=== PATIENT | male | born 1945 | race Caucasian/White ===

== ENCOUNTER 2017-03-18 11:37 | Emergency (ER) | payer MEDICARE, OTHER ==
[~2017-03-18] VITALS: Ht 190.5 cm; Wt 131.8 kg
[~2017-03-18 11:37] MED LIST: AMLO5TAB2 PO; METO25TA99 PO; PRV40T PO; WARF7.5T4 PO; [UNRECOGNIZED DRUG - CODE] PO
[2017-03-18 11:41] VITALS: BP 141/90; PULSE 75; RESP 17; O2SAT 97
--- NOTE | 2017-03-18 12:03 | ED.REPORT ---
HPI-Rash / Abscess Date of Service Mar 18, 2017 ED Provider: Bernice Blevins MD Patient is a 72-year-old gentleman with history of atrial fibrillation currently on Coumadin with an INR 3.3 today, presents with concern for bleeding into his right groin. He says for the last couple of weeks he has had a growing discoloration in his right groin onto his thigh, that has since waiting in the previous days, however he was concerned that he was continuing to have internal bleeding. Today he presents with a lesion roughly palm-sized on the inner portion of his right groin, he says it has been itching. He does not remember any trauma to the area, has not had this before, does not describe any activities out of the ordinary. Denies any lightheadedness, dizziness, chest pain, shortness of breath, nausea vomiting or diarrhea, no other lesions elsewhere. Nursing Notes Stated Complaint: POSSIBLE INTERNAL BLEEDING Chief Complaint: General Complaint Nursing Notes Reviewed: Yes Allergies: Coded Allergies: Sulfa (Sulfonamide Antibiotics) (Verified Allergy, Mild, 03/18/17) atorvastatin (Verified Allergy, Mild, Rash, 03/18/17) atorvastatin calcium (Verified Allergy, Mild, 03/18/17) Uncoded Allergies: SOTOLOL (Allergy, Severe, 09/15/13) Scheduled Amlodipine (Amlodipine) 5 Mg Tablet 5 MG PO DAILY Clotrimazole 1% (Clotrimazole 1%) 30 Ml Solution 30 ML TOPICAL BID Dofetilide (Tikosyn) 125 Mcg Capsule 125 MCG PO BID Metoprolol Succinate ER (Metoprolol Succinate ER) 25 Mg Tab.er.24h 25 MG PO DAILY Pravastatin (Pravachol) 40 Mg Tab 80 MG PO HS Warfarin Sodium (Warfarin Sodium) 7.5 Mg Tablet 7.5 MG PO DAILY General Time Seen by MD: 11:47 Chief Complaint Rash Similar Sx Previous: No Past Medical History Past Medical History Hypertension Hyperlipidemia Atrial fibrillation on Coumadin Past Surgical History PCI 2014 Review of Systems Complete sys rev & neg: except as marked. Physical Exam General: Standing in room, no apparent distress. HEENT: Normocephalic, atraumatic Cardiovascular: Irregularly irregular, no clicks murmurs rubs, peripheral pulses 2/4 equal bilaterally Pulmonary: Clear to auscultation bilaterally, no W/R/R. Abdominal: Soft to palpation. Extremities: No edema appreciated. No tenderness, asymmetry. Right inguinal region is a palm sized annular lesion with an active border, there is no purulence, no ecchymosis, no bleeding or excoriation. There is no foul odor, area is dry. MSK: Gait is normal, able to move extremities on their own volition. Initial Vital Signs Vital Signs (First) Date Time Temp Pulse Resp B/P Pulse Ox O2 Delivery O2 Flow Rate FiO2 03/18/17 11:41 36.5 75 17 141/90 97 Room Air Initial VS: Reviewed Re-Eval/Medical Decision Med Decision/Clinical Course History of lesion, as well as morphology on physical exam is consistent with fungal infection, tinea cruris. His custody interpretation of the exam, as well as treatment with the patient. Patient stated understanding and agreement. In regards to his atrial fibrillation, he is irregularly irregular, reportedly his INR is supratherapeutic at 3.3, but we do not see any active bleeding, no active ecchymosis, no hematomas. Red flag symptoms and return precautions were discussed with patient regarding his atrial fibrillation, he stated understanding and agreement. Prescription for topical antifungal was sent to his pharmacy with follow-up instructions to his PCP. Discharge & Departure Impression: Primary Impression: Tinea cruris Disposition: Home Discharge Condition All VS Reviewed: Yes Condition: Stable Patient Instructions: Jock Itch (ED) Additional Instructions: Thank you for entrusting us with your care. On exam the lesion your concern about is consistent with a fungal infection, "jock itch." This does not appear to be due to internal bleeding. Treatment for this is topical antifungal cream. This will be sent to your pharmacy. Please apply twice a day to the affected area after getting out of the shower and the area is completely dried off. If you notice any other discolorations appearing anywhere else on your body, please follow-up with your primary care doctor. In regards to your atrial fibrillation, rate appears to be under control. If you experience any lightheadedness, dizziness, chest pain, or abrupt shortness of breath, please call 911. Referrals: Sam Benítez MD (PCP) Attending Statement Patient seen and examined with Dr. Rucker. Agree with diagnosis of tinea cruris. No evidence of bleeding at this time. copies to: Sam Benítez MD; Enmanuel Martinez MD, Noah M DO Mar 18, 2017 12:03 Bernice Blevins MD Mar 18, 2017 15:40
[2017-03-18] MEDS ORDERED: ECON15CR10 TOP (12:14)
[2017-03-18] MEDS ORDERED: CLOT30SO TOPICAL (12:18)
== END 2017-03-18 12:50 | disposition home or self-care (01) ==
LOC: SED 11:37
DX: B35.6 Tinea cruris (principal); I10 Essential (primary) hypertension; E78.5 Hyperlipidemia, unspecified; Z79.01 Long term (current) use of anticoagulants; Z88.2 Allergy status to sulfonamides; Z88.8 Allergy status to other drugs, medicaments and biological substances

== ENCOUNTER 2017-05-29 00:23 | Day surgery (SDC) | payer MEDICARE, OTHER ==
[~2017-05-29] VITALS: Ht 190.5 cm; Wt 131.8 kg
[2017-05-29] VITALS (13 sets, daily range): BP systolic 100–148; BP diastolic 52–78; PULSE 57–67; RESP 12–22; O2SAT 93–97
[~2017-05-29 00:23] MED LIST changes: +CLOT30SO TOPICAL; +MULT-1018 PO
[2017-05-29] MEDS ORDERED: Rocuronium 10 mg/mL 5 mL Inj ONE (00:24)
[2017-05-29] MEDS ORDERED: Ondansetron 2 mg/mL 2 mL Inj ONE (00:24)
[2017-05-29] MEDS ORDERED: Ketamine 10 mg/mL 20 mL Inj ONE (00:24)
[2017-05-29] MEDS ORDERED: MetoCLOpramide 5 mg/mL 2 mL Inj ONE (00:24)
[2017-05-29] MEDS ORDERED: Protamine Sulfate 10 mg/mL 5 mL Inj ONE ×2 (00:24→15:23)
[2017-05-29] MEDS ORDERED: Propofol 10,000 mCg/mL 20 mL Inj ONE (00:24)
[2017-05-29] MEDS ORDERED: Dexamethasone 4 mg/mL Inj ONE (00:24)
[2017-05-29] MEDS ORDERED: Lactated Ringer's 1,000 ML IV SCH ×2 (05:00→13:25)
[2017-05-29] MEDS ORDERED: Benzoc-Butamben-Tetraca Spray 20 Gm Spray TOPICAL ONE (06:00)
[2017-05-29 11:04] LABS: BASOPHILS % (AUTO) 0.4 % (0-3); EOSINOPHILS % (AUTO) 2.8 % (0-5); MONOCYTES % (AUTO) 15.8 % (4-12); Mean Corpuscular Hemoglobin 32.8 pg (27.0-35.0); Mean Corpuscular Volume 95.2 fL (81-100); NEUTROPHILS % (AUTO) 55.6 % (40-74); Platelet Count 229 bil/L (150-400)
[2017-05-29] MEDS ORDERED: OMEG1CAP99 PO (11:10)
[2017-05-29] MEDS ORDERED: WARF10TA4 PO (11:10)
--- NOTE | 2017-05-29 11:12 | NUR ---
Admit [facility] Admitted to [facility] 8 about 1000. VSS. Tele appears SR with 1st degree AVB. IVs started and labs sent. BG 140. PT/INR 39.4/3.3. Denies pain. See EMR for further assessment and info. Procedure and recovery reviewed and verbalizes understanding. Awaiting poultry farm laborer.
[2017-05-29 11:20] LABS: INR 3.01 ratio
[2017-05-29] MEDS ORDERED: Heparin 25,000 Unit/500 mL 0.45% NS Premix IV ONE (12:03)
[2017-05-29] MEDS ORDERED: Heparin 1,000 Unit/mL 10 mL Inj ONE ×2 (12:03→13:18)
[2017-05-29] MEDS ORDERED: Heparin 10,000 Unit/1,000 mL NS Premix IV ONE (12:03)
[2017-05-29] MEDS ORDERED: Heparin 1,000 Units/500 mL NS Premix IV ONE (12:03)
[2017-05-29] MEDS ORDERED: 0.9% Sodium Chloride 5,000 ML ONE (12:04)
--- NOTE | 2017-05-29 12:12 | PCM.HPANE ---
Patient Data Surgeon Admitting Provider: Attending Provider:Enmanuel Martinez MD Primary Care Physician:Sam Benítez MD Other Provider:[facility] Reason for Visit A-FIB Ht/WT & BMI Height (Feet): 6 Height (Inches): 3.00 Weight (Kilograms): 131.800 Body Mass Index 36.13 Allergies Coded Allergies: Sulfa (Sulfonamide Antibiotics) (Verified Allergy, Mild, 05/29/17) atorvastatin (Verified Allergy, Mild, Rash, 05/29/17) atorvastatin calcium (Verified Allergy, Mild, 05/29/17) Uncoded Allergies: SOTOLOL (Allergy, Severe, 09/15/13) Past Anesthesia History Anesthesia History: Denies:: Abnormal Airway, Anesthesia Reactions, Difficult Intubation, Fam Anesthesia Reaction, Fam Malignant Hypertherm, Malignant Hyperthermia Diabetes History Hx Diabetes?: Yes (Type 2) Current Bedside Blood Glucose: 140 MRSA MRSA: No Medications Blood Thinner: Coumadin Reported Medications [place]-3 Fatty Acids/Fish Oil (Fish Oil 1,200 mg Softgel)1 Each Capsule1 Each PO DAILY 05/29/17 Warfarin Sodium 10 Mg Eliest25 Mg PO DAILY 30 Days Ref 0 Except take 1/2 tablet on Sundays05/29/17 Multivitamin (Multi Vitamin Daily)1 Each Tablet1 Each PO DAILY 30 Days Ref 0 05/27/17 Pravastatin (Pravachol)40 Mg Tab80 Mg PO HS 30 Days Ref 0 09/27/14 Metoprolol Succinate ER 25 Mg Tab.er.24h25 Mg PO BID 30 Days Ref 0 09/27/14 Amlodipine 5 Mg Tablet5 Mg PO DAILY 30 Days Ref 0 08/26/14 Dofetilide (Tikosyn)125 Mcg [id number] Mcg PO BID 30 Days 08/26/14 Discontinued Reported Medications Warfarin Sodium 7.5 Mg [id number] Mg PO DAILY 30 Days Ref 0 09/27/14 Discontinued Scripts Clotrimazole 1% 30 Ml [id number] Ml TOPICAL BID #1 TUBE Prov:Earnest Rucker DO 03/18/17 History History of ENT Problems?: Yes HEENT History: Positive for:: Cataracts (bilat surgery) Denies:: Abnormal Airway Difficult Intubation Dysphagia Glaucoma Hearing Problem Sinus Problem Denture Type: Full- Upper Teeth Condition: Within Normal Limits Other HEENT Pertinent History: Upper plate Hx of Heart Problems?: Yes Cardiovascular History: Positive for:: Atrial Fibrillation Cardiac Surgery (BYPASS 2002, ablasion in 2009) Chest Pain Hypertension Irregular Heartbeat (hx of afib) Denies:: AICD Congestive Heart Failure Edema Heart Murmur Pacemaker Peripheral Vascular Thrombophlebitis Valvular Heart Disease Hx of Respiratory Problem?: Yes Respiratory History: Positive for:: Chest Surgery (CABG) Denies:: Asthma COPD Dyspnea Emphysema Hemoptysis Pneumonia Tuberculosis Hx Neurologic Problems?: Yes Neurological History: Positive for:: Headaches Denies:: Alzheimer's Disease CVA Dementia Dizziness Parkinson's Disease Seizures Hx of GI Problems?: No Hx of Problems?: No Genitourinary History: Denies:: HX of Hemodialysis Kidney Stones Urinary Tract Infection HX of Peritoneal Dialysis: No Male Hx: Denies:: Prostate Problems Scrotal Mass Testicular Surgery Hx Musculoskeletal Problems?: No Musculoskeletal History: Positive for:: Back Injury (A couple of slip and falls) Denies:: Joint Replacement Musculoskeletal Trauma Hx of Psycho/Social Problems?: No Psycho Social History: Denies:: Anxiety Bipolar Disorder Hx Depression Suicide Attempt Hx Surgeries?: Yes (by pass hernia carpal tunnel prostate tonsillectomy sinus ) Hx Any Other Health Problems?: Yes Other History: Positive for:: Hospitalization Denies:: Cancer Endocrine Disease Thyroid Disease History Blood Transfusions: Positive for:: Accept Blood Products? Denies:: Blood Transfuse Reaction Blood Transfusions Hx Diabetes: Yes (Type 2)Bedside Blood Glucose: 140 Hx Alcohol Use: YesAlcoholic Drinks Per Day: Occ. beerHx Substance Use: No Smoking Status: Never Smoker Have You Smoked inLast 12 mo: No Stop/Bang Treated for Sleep Apnea?: No Do You Have a CPAP Machine?: No EDEN Risk Assessment: Low Risk, <3 Yes Risk Assessment Category Category 1A: Patient has history of documented sleep apnea, and HAS NOT received any narcotic, sedative or anesthesia administration during this stay. Category 1B: Patient has history of documented sleep apnea, and HAS received any narcotic , sedative or anesthesia administration during this stay Category 2: Patient has SUSPECTED Obstructive Sleep Apnea, and HAS received any narcotic , sedative or anesthesia administration during this stay. Category 3: Patient has SUSPECTED Obstructive Sleep Apnea and HAS NOT received narcotic, sedative or anesthesia administration during this stay. Category 4: Outpatient in Procedural Areas with known sleep apnea or who screen positive for High Risk via the STOP/BANG questionnaire. Exam Exam Vital Signs Vital Signs Date Time Temp Pulse Resp B/P Pulse Ox O2 Delivery O2 Flow Rate FiO2 05/29/17 10:50 67 15 148/74 05/29/17 10:50 36.6 67 15 148/74 97 Room Air General Appearance: Oriented X3 HEENT/AIRWAY: MP 2 Lungs: Normal Air Movement Heart: Other Meds/Labs/Diagnostics Bedside Blood Glucose: 140 Labs Test 05/29/17 10:30 White Blood Count 5.7th/mm3 (3.8-10.1) Red Blood Count 4.42mil/mm3 (4.40-5.80) Hemoglobin 14.5g/dL (13.8-17.2) Hematocrit 42.1% (41.0-50.0) Mean Corpuscular Volume 95.2fL (81-100) Mean Corpuscular Hemoglobin 32.8pg (27.0-35.0) Mean Corpuscular Hemoglobin Concent 34.4% (32.0-37.0) Red Cell Distribution Width 13.1% (12.3-15.4) Platelet Count 229bil/L (150-400) Neutrophils (%) (Auto) 55.6% (40-74) Lymphocytes (%) (Auto) 25.2% (14-46) Monocytes (%) (Auto) 15.8% (4-12) Eosinophils (%) (Auto) 2.8% (0-5) Basophils (%) (Auto) 0.4% (0-3) Prothrombin Time 32.9sec (8.1-12.5) Prothromb Time International Ratio 3.01ratio Sodium Level 136mEq/L (134-144) Potassium Level 4.1mEq/L (3.5-5.2) Chloride Level 100mEq/L (97-108) Carbon Dioxide Level 21mmol/L (18-29) Blood Urea Nitrogen 19mg/dL (8-27) Creatinine 0.98mg/dL (0.76-1.27) Estimat Glomerular Filtration Rate 80mL/min (>59) Glucose Level 139mg/dL (60-99) Calcium Level 9.0mg/dL (8.5-10.1) Plan Impression Patient chart reviewed, patient interviewed and anesthestic plan with risks, benefits, and alternatives discussed, and informed consent obtained. ASA Physical Status: ASA3 Severe Disease Anesthetic Support Modalities: Arterial Line Anesthetic Plan: GA Bene/Risks/Altern/Consents: Yes HP Complete Prior to Induction: Yes Cullen Cary MD May 29, 2017 12:12
[2017-05-29] MEDS ORDERED: EPHEDrine Sulfate 50 mg/mL Inj IVPUSH PRN (13:25)
[2017-05-29] MEDS ORDERED: MetoCLOpramide 5 mg/mL 2 mL Inj IVPUSH PRN (13:25)
[2017-05-29] MEDS ORDERED: Lactated Ringer's 500 ML IV PRN (13:25)
[2017-05-29] MEDS ORDERED: fentaNYL-PF 50 mCg/mL 2 mL Inj IVPUSH PRN (13:25)
[2017-05-29] MEDS ORDERED: HYDROmorphone 1 mg/mL Inj IVPUSH PRN (13:25)
[2017-05-29] MEDS ORDERED: Dexamethasone 4 mg/mL Inj IVPUSH PRN (13:25)
[2017-05-29] MEDS ORDERED: Phenylephrine 10,000 mCg/mL Inj IVPUSH PRN (13:25)
[2017-05-29] MEDS ORDERED: Ondansetron 2 mg/mL 2 mL Inj IVPUSH PRN (13:25)
[2017-05-29] MEDS ORDERED: HYDROcodone-APAP 5-325 mg Tablet PO PRN (15:50)
[2017-05-29] MEDS: 0.9% Sodium Chloride 1,000 ML IV SCH ×2 (17:06→19:03)
--- NOTE | 2017-05-29 17:25 | NUR ---
Procedure/Recovery/Pain Pt. went to skilled laborer about 1230. Returned at 1615. Unarousable at first but VSS and breathing independently with oral airway in. Pt. able to open eyes within 10minutes and airway out within 15minutes. C/O severe back pain 8/10 per FELDT. Fentanyl 50mcg and Morphine 4mg IVP given without relief. Dilaudid 1mg IVP given and states pain down to 3/10 at this time. Dozing intermittently. O2 weaned as able from Simple mask to 4L NC. Tele SB with 1st degree AVB. Taking ice chips without nausea. Continue to monitor per orders.
--- NOTE | 2017-05-29 17:47 | PROCED ---
[address] [address] PROCEDURE NOTE PATIENT: LIBRADO BYERS : 1945 MR#: [id number] ADMIT: 05/29/2017 JOB ID: [id number] DATE OF SERVICE: 05/29/2017 PREOPERATIVE DIAGNOSIS(ES): Paroxysmal drug refractory symptomatic atrial fibrillation. POSTOPERATIVE DIAGNOSIS(ES): Paroxysmal drug refractory symptomatic atrial fibrillation. PROCEDURES PERFORMED: 1. Comprehensive electrophysiology study. 2. Three-dimensional electroanatomic mapping using the CARTO 3 system. 3. Intracardiac echocardiography. 4. Transseptal puncture x2. 5. Atrial fibrillation ablation with pulmonary vein isolation. 6. Barium esophagram. 7. Fluoroscopy. SURGEON: Health Information Systems Technician: Enmanuel Martinez MD, electrophysiology attending. HYDRAMATIC SPECIALIST: Diana Hauser. ANESTHESIA: General endotracheal anesthesia was undertaken for this case. INDICATION: The patient is a pleasant 72-year-old man with preserved LV function, coronary artery disease bypass grafting, and previous atrial fibrillation ablation. After discussion of the risks and benefits of catheter based mapping ablation, he opted to proceed. PROCEDURAL DESCRIPTION: Following informed consent, the patient was taken to the EP laboratory in the fasting nonsedated state where he was prepped and draped in the usual sterile fashion. He underwent a preprocedural transesophageal echocardiogram by Dr. Torres. Please see separate dictated report for the details of that procedure. This confirmed lack of intracardiac thrombus. The bilateral groins were then infiltrated with 1% lidocaine; then, using modified Seldinger technique, two 8-Northern Irish sheaths were inserted into the right femoral vein and a 7- and 10.5-Northern Irish were inserted into the left femoral vein. Under fluoroscopic guidance a deflectable decapolar catheter was advanced into the coronary sinus with the most proximal bipoles at the os of the sinus. An intracardiac echocardiography probe was advanced to the RV outflow tract and used to visualize the pericardial space. No effusion was noted. The ICE probe was pulled back into the right atrium and used to visualize the interatrial septum in assistance of transseptal puncture. Two transseptal punctures were performed in an identical fashion. Each of the short 8-Northern Irish sheaths in the right groin was exchanged over a long wire for a [employer] sheath dilator and [place]-Vienna needle. The entire system was used to engage the interatrial septum; then, under fluoroscopic, ICE, and pressure guidance, the septum was traversed twice to deploy the two Lynch sheaths into the left atrium. The patient was heparinized for a goal ACT of 350-400 seconds for the entire time we were in the left atrium following the first and preceding the second transseptal puncture. A re-survey of the pericardial space showed no evidence of effusion. Through the two Lynch sheaths an F-curve SmartTouch irrigated ablation catheter was passed, as was a single 20-pole PentaRay catheter. A three-dimensional electroanatomic map of the left atrium and four pulmonary veins was created using the [employer] 3 system. Three of the four pulmonary veins had reconnected electrically, the left upper, right upper, and right lower pulmonary veins. These were targeted with circumferential ablation lesions at their , achieving entrance and exit block. The left lower pulmonary vein was already isolated for entrance and exit block. I then disengaged from the left atrium, turned off the heparin, resurveyed the pericardial space which showed no evidence of effusion, and reversed patient's heparin with protamine. During the course of this study we did complete a comprehensive electrophysiology study with right atrial pacing recording, right ventricular pacing recording, His bundle recording, and left atrial pacing recording. All catheters and sheaths were removed. Manual pressure was performed for hemostasis. The patient was transferred to the [facility] for monitoring and bed rest. COMPLICATIONS: None. ESTIMATED BLOOD LOSS: 10 to 20 mL. FINDINGS: 1. Baseline rhythm is sinus with an RR interval of 1136 msec, KS 230 msec, QRS 95 msec, QT 547 msec. 2. Retrograde conduction. Atrial activation was concentric. VA Wenckebach seen at 500 msec. 3. Pulmonary vein isolation as described above with entrance and exit block of all four pulmonary veins. IMPRESSION: Successful pulmonary vein isolation procedure for drug-refractory symptomatic paroxysmal atrial fibrillation. PLAN: 1. Bed rest x4 hours. 2. Continue warfarin, dofetilide, and beta blockade. 3. Protonix 40 mg p.o. daily x1 month. 4. Follow up with Armin Love PA-C in clinic in four weeks and with az in three months. 5. Monitoring overnight. ATTENDING STATEMENT: Enmanuel Martinez MD, electrophysiology attending, was present for and supervised/performed all aspects of this procedure.
--- NOTE | 2017-05-29 18:44 | NUR ---
Transfer No change in assessment. VSS. Tele SB with 1st degree AVB. States back pain 02/01 but requesting po meds. Discussed options and pt. chose vicodin. 2 po given as pt. large and resistant to meds per anesthesia. Taking po well. Report to Tressa Davidson RN. Transported to 2029 via bed with all belongings and in no distress at 1820. Bedside check done.
--- NOTE | 2017-05-29 19:49 | NUR ---
Arrival to unit/Groin sites Patient alert and oriented x3, reports full sensation, all distal pulses palpable. VS within normal limits, SPO2 weaned to 2L (patient typically on RA, drowsy from medications post ablation). Bedrest until 2014 -- patient aware. Bilateral groin sites views with ANABEL MAIKEL Herrera, small sanguinous drainage noted with possible small hematoma on R (approx the size of dime). Both groin sites viewed with NOC MAIKEL Palma. Denies pain at bilateral groin sites.
--- NOTE | 2017-05-29 21:24 | PCM.CONPHA ---
Assessment/Plan Assessment/Plan ANTICOAGULATION MANAGEMENT BY PHARMACY -INDICATION: AFIB -HOME DOSE: 10 MG DAILY EXCEPT SUNDAYS TAKE 5 MG -CONCURRENT ANTICOAGULATION: NONE -COAG TRENDS: Date -May INR 3.01 PLAN: PATIENTS TOOK HOME DOSE TODAY SO WILL WAIT UNTIL TOMORROWS INR COMES BACK AND EVALUATE. Pharmacy appreciates consult and will continue to monitor. THANKS! Gladis Tao PharmD May 29, 2017 21:24
[2017-05-29] MEDS: MeTOProlol XL 25 mg ER24 Tablet PO SCH (22:02)
[2017-05-30 03:46] VITALS: BP 126/65; PULSE 62; RESP 20; O2SAT 98
[2017-05-30] MEDS: 0.9% Sodium Chloride 1,000 ML IV SCH (05:03)
[2017-05-30 05:09] VITALS: O2SAT 97
[2017-05-30 06:05] VITALS: PULSE 60
[2017-05-30 06:14] LABS: INR 4.17 ratio
[2017-05-30] MEDS ORDERED: Pantoprazole 40 mg ER24 Tablet PO SCH (06:30)
[2017-05-30 08:00] VITALS: PULSE 61
--- NOTE | 2017-05-30 08:25 | NUR ---
Tele/Groin Sites/Hernandez Tele SR 60s most of night w/ a 1st degree AVB, no c/o pain/SOB. Pt titrated off of O2 and has been on RA most of morning w/ sats mid 90s. Bilateral groin sites soft w/ palpable pedal pulses. Right side w/ some minimal sanguineous oozing, dressing changed due to leaking. Pt did not want to get up as he was sleepy but did so this morning around 0400. Pt tolerated activity well, right groin site w/ slight oozing after that. Otherwise groins sites unchanged. Hernandez DC'd at 0430 after pt ambulated. At bedside report pt stated he urinated in BR since.
[2017-05-30] MEDS ORDERED: Omega-3 Fatty Acids 1,000 mg Capsule PO SCH (08:30)
--- NOTE | 2017-05-30 08:35 | DRSVH ---
[facility] [address] [place] [address] Echocardiogram Report Name: LIBRADO BOB Study Date: 05/29/2017 Height: 75 in Hospital Exam Location: [facility] Weight: 290 lb Gender: Male BSA: 2.6 m2 : 1945 Age: 72 yrs BP: 139/71 mmHg Reason For Study: Atrial fibrillation Performed By: Desiree Weaver Referring Physician: GUANACO WEBBER Interpretation Summary 1. No thrombus appreciated in the sampled segments of the left atrium or left atrial appendage. 2. Trace to mild mitral regurgitation Procedure: Informed consent for Transesophageal Echocardiogram, and use of a contrast agent as needed, was obtained prior to the procedure. The patient was brought to the cardiac catheterization lab in a fasting state. The transesophageal probe was passed without difficulty. There were no complications. Atria: No thrombus appreciated in the sampled segments of the left atrium or left atrial appendage. Mitral Valve: Leaflets are thin with normal excursion. There is trace mitral regurgitation. Aortic Valve: The aortic valve is trileaflet. The aortic valve opens well. Tricuspid Valve: The tricuspid valve leaflets are thin and pliable. Pulmonic Valve: The pulmonic valve is not well seen, but is grossly normal. Reading Physician:08:35 AM
--- NOTE | 2017-05-30 08:39 | DIS ---
[address] [address] DISCHARGE SUMMARY PATIENT: LIBRADO BYERS : 1945 MR#: [id number] ADMIT: 05/29/2017 JOB ID: [id number] DIS: 05/30/2017 DISCHARGE DIAGNOSES: 1. Paroxysmal atrial fibrillation. 2. Systemic hypertension. 3. Coronary artery disease, status post bypass grafting. 4. Preserved left ventricular function. DISCHARGE MEDICATIONS: 1. Protonix 40 mg p.o. daily x1 month. 2. Dofetilide 500 mcg p.o. twice daily. 3. Amlodipine 5 mg p.o. daily. 4. Metoprolol succinate 25 mg p.o. b.i.d. 5. Multivitamin 1 tab p.o. daily. 6. Pravastatin 80 mg p.o. q.h.s. 7. 1 g p.o. daily. 8. Warfarin as dictated by anticoagulation clinic. CONSULTATIONS: Anesthesiology. PROCEDURES PERFORMED: Atrial fibrillation ablation and transesophageal echocardiography. Please see separate dictated report for the details of those procedures. IDENTIFICATION/BRIEF HOSPITAL COURSE: The patient is a pleasant 72-year-old man with coronary artery disease bypass grafting, preserved LV function, previous atrial fibrillation ablation who had recurrent drug refractory symptomatic atrial fibrillation mapping. He underwent atrial fibrillation ablation uneventfully and remained in sinus rhythm overnight. He remained hemodynamically stable. He will be discharged home with family with close followup. He will continue his current regimen including dofetilide, beta blockade, warfarin and Protonix daily for one month. DISPOSITION: To home with . LIMITATIONS: Post catheterization precautions. DIET: Cardiac diet. FOLLOWUP: She has a follow up appointment with Armin Love in four weeks and will see me in three months.
[2017-05-30 08:50] VITALS: BP 149/79; PULSE 65; RESP 16; O2SAT 97
[2017-05-30] MEDS: MeTOProlol XL 25 mg ER24 Tablet PO SCH (08:52)
[2017-05-30] MEDS ORDERED: PANT40TA2 PO (10:41)
--- NOTE | 2017-05-30 10:57 | NUR ---
Discharge Paper discharge done with pt. All information regarding apts and medication reconciliation done with pt. Information packets given on ablation, afib, and Protonix. All discharge teaching and instructions done with pt at bedside. All questions and concerns answered. Information went over with also. Hard copy of RX with pt. Two IV's d/c'd. No items in the safe or pharmacy.
--- NOTE | 2017-05-30 10:58 | PCM.ANEP1 ---
Post Anesthesia PACU Phase 1 Assessment Vital Signs Vital Signs Date Time Temp Pulse Resp B/P Pulse Ox O2 Delivery O2 Flow Rate FiO2 05/30/17 08:50 65 16 149/79 97 Room Air 05/30/17 06:05 60 05/30/17 05:09 97 Room Air 05/30/17 03:46 36.5 62 20 126/65 98 Nasal Cannula 1.00 Anesthetic Administered: GA Level of Alertness: Awake, talking Pain: No Pain Scale Score: 3 Nausea or Vomiting: No CV Function & Hydration Stable: Yes Airway Device: Lungs: Normal Air Movement PACU Phase 2 Assessment Patient Instructions Provided: N/A Cullen Cary MD May 30, 2017 10:58
== END 2017-05-30 11:30 | disposition home or self-care (01) ==
LOC: SOUO 00:23 → PCC 18:21 → SOUO 05-30 11:30
PROVIDERS: ATTEND Internal Medicine Cardiovascular Disease
DX: I48.0 Paroxysmal atrial fibrillation (principal); I25.810 Atherosclerosis of coronary artery bypass graft(s) without angina pectoris; Z79.899 Other long term (current) drug therapy; G47.30 Sleep apnea, unspecified; E11.9 Type 2 diabetes mellitus without complications; Z79.01 Long term (current) use of anticoagulants; I10 Essential (primary) hypertension
CPT/HCPCS: 36415; 80048; 85025; 85610; 93005; 93613; 93656; 93662; C1730; C1732; C1759; C1769; C1894; C8925; J1100; J1170; J1644; J2250; J2270; J2405; J2720; J2765; J3010; J7030